=== PATIENT | female | born 1975 | race Caucasian/White ===

== ENCOUNTER 2020-12-29 10:44 | Day surgery (SDC) | payer MEDICAID ==
[~2020-12-29] VITALS: Ht 157.5 cm; Wt 80.4 kg
[2020-12-29] MEDS ORDERED: ATOR20TA86 PO (11:16)
[2020-12-29] MEDS ORDERED: LEVO100T5 PO (11:16)
[2020-12-29 11:17] LABS: HCG UR SG 1.008 (1.003-1.030)
[2020-12-29] MEDS ORDERED: RANO500T6 PO (11:22)
[2020-12-29] MEDS ORDERED: POTA20TA89 PO (11:22)
[2020-12-29] MEDS ORDERED: ISOS30TA8 PO (11:22)
[2020-12-29] MEDS ORDERED: FLUO10TA PO (11:24)
[2020-12-29] MEDS ORDERED: PROP10TA51 PO (11:24)
[2020-12-29] MEDS ORDERED: ASPI-963 PO (11:24)
[2020-12-29] MEDS ORDERED: FAMO20TA7 PO (11:24)
[2020-12-29] MEDS ORDERED: CYCL10TA2 PO (11:24)
[2020-12-29 11:26] VITALS: BP 106/70
[2020-12-29] MEDS ORDERED: LACTATED RINGERS 1,000 ML IV SCH (11:30)
[2020-12-29] MEDS ORDERED: PROPOFOL 50 ML ONE (12:24)
[2020-12-29] MEDS ORDERED: MEPERIDINE/PF 25MG/0.5ML IVPush PRN (13:30)
[2020-12-29] MEDS ORDERED: LORazepam 2 MG/ML, 1ML IVPush PRN (13:30)
[2020-12-29] MEDS ORDERED: FENTANYL PF 100 MCG/2ML IV PRN (13:30)
[2020-12-29] MEDS ORDERED: PROMETHAZINE 25 MG/ML, 1ML IVPush PRN (13:30)
[2020-12-29] MEDS ORDERED: ONDANSETRON 2MG/ML, 2ML IVPush PRN (13:30)
[2020-12-29] MEDS ORDERED: HYDROcodone/APAP 7.5-325MG/15ML UDC PO PRN (13:30)
[2020-12-29] MEDS ORDERED: METHOCARBAMOL 1,000 MG in DEXTROSE 5% 100 ML IV PRN (13:30)
[2020-12-29] MEDS ORDERED: DIPHENHYDRAMINE 50 MG/ML, 1ML IVPush PRN (13:30)
[2020-12-29] MEDS ORDERED: HYDROmorphone 1 MG/ML, 1ML INJ IVPush PRN (13:30)
== END 2020-12-29 14:07 | disposition home or self-care (01) ==
LOC: OR 10:44
PROVIDERS: ATTEND Internal Medicine Geriatric Medicine
DX: R10.13 Epigastric pain (principal); K29.50 Unspecified chronic gastritis without bleeding; K20.90 Esophagitis, unspecified without bleeding; R14.0 Abdominal distension (gaseous); R68.81 Early satiety; I10 Essential (primary) hypertension; E78.5 Hyperlipidemia, unspecified; E03.9 Hypothyroidism, unspecified; Z20.822 Contact with and (suspected) exposure to COVID-19; Z79.890 Hormone replacement therapy; Z79.899 Other long term (current) drug therapy; Z88.8 Allergy status to other drugs, medicaments and biological substances; Z91.030 Bee allergy status; Z95.810 Presence of automatic (implantable) cardiac defibrillator
CPT/HCPCS: 43239; 81025; 87635; 88305; J2704